=== PATIENT | male | born 2000 | race Caucasian/White ===

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

== ENCOUNTER 2022-02-10 16:33 | Emergency (ER) | payer MEDICAID, SELFPAY ==
[2022-02-10 16:35] VITALS: BP 137/79; PULSE 93; RESP 14; TEMP 36.2; O2SAT 98; BMI 20.4
--- NOTE | 2022-02-10 20:31 | EDS_ITS ---
HPI History of Present Illness Chief Complaint: Eye Problem Narrative Narrative: 22-year-old male presenting with left eye drainage. He states he does not know when this started. He denies any trauma. He is a noncontact wearer. He states that he is not had a fever or visual complaints. He does state that is hard to keep his eye open at times. He is noted weeping and crusting over the left eye. [facility] Medical History Hidradenitis suppurativa Home Medications cephalexin 500 mg capsule 500 mg PO Q6 #40 CAPSULES 07/07/21 [Rx Last Taken Unknown] sulfamethoxazole 800 mg-trimethoprim 160 mg tablet 1 tab PO BID #20 TABLETS 07/07/21 [Rx Last Taken Unknown] tramadol 50 mg tablet 50 mg PO Q4H PRN PRN Pain 07/07/21 [History Last Taken Unknown] polymyxin B sulfate 10,000 unit-trimethoprim 1 mg/mL eye drops (Polytrim) 1 drp LEFT EYE Q3H 7 days #10 mL 02/10/22 [Rx Last Taken Unknown] Allergy/AdvReac Type Severity Reaction Status Date / Time amoxicillin Allergy Other Verified 02/10/22 16:35 codeine Allergy Other Verified 02/10/22 16:35 Penicillins Allergy Other Verified 02/10/22 16:35 Social History Smoking Status: Never smoker ROS ROS ED Constitutional Constitutional ED: Denies chills, fever(s) or sweats Eyes Eyes: Reports other Details: Left eye discharge, drainage, matted eyelid ; Denies blurry vision or change in vision ENT ENT ED: Denies ear pain or sore throat Cardiovascular Cardiovascular: Denies chest pain, palpitations or racing heartbeat Respiratory/Chest Respiratory/Chest: Denies cough, dyspnea or sputum Gastrointestinal Gastrointestinal: Denies abdominal pain, constipation, diarrhea, nausea or vomiting Genitourinary Genitourinary ED: Denies dysuria, hematuria or urinary frequency Musculoskeletal Musculoskeletal: Denies arthralgias, myalgias or neck pain Integumentary Denies abscess, Abrasions or rash Neurologic Neurologic: Denies headache(s), paresthesias or weakness Psychiatric Psychiatric: Denies anxiety, depression, suicidal ideation or suicidal thoughts Endocrine Endocrinology: Denies polydipsia or polyuria EXAM Physical Exam Const Vital Signs: 02/10/22 16:35 Temperature 97.2 F L Temperature Source Temporal Pulse Rate 93 Respiratory Rate 14 Blood Pressure 137/79 H Blood Pressure Mean 98 Pulse Ox 98 Oxygen Delivery Method Room Air Positive well nourished General Appearance ED: ANJELICA SIMPSON Reports normocephalic atraumatic Eyes PERRL and EOMs intact bilaterally Alignment: alignment normal Sclera: sclera abnormal Positive for left Details: scleral injection Pupil: PERRL Slit Lamp: lids/lashes/lacrimal system lid swelling/edema (Crusting and drainage noted to the left eye.) Resp normal respiratory effort GI non-tender Neuro oriented x3 Sensorium / Orientation: alert MDM MDM MDM Narrative Medical decision making narrative: Patient with left eye irritation, drainage, matted eyelids, increased left eye pain. Exam is consistent with conjunctivitis. This has been ongoing for at least a week after speaking with the patient. He states he has not had any medication yet. He denies any eye trauma. He is a noncontact wearer. Patient started on Polytrim with the first dose given in the ER. He is given follow-up with ophthalmology to ensure resolution. Impression: 1. Conjunctivitis Lab Data Attestation: I reviewed the patient's lab results. Discharge Plan Triage Chief Complaint: Eye Problem ED Provider: Sherman Nazario Dx/Rx/DC Orders Instructions: ED Conjunctivitis, Bacterial Prescriptions: New polymyxin B sulf-trimethoprim [Polytrim] 10,000 unit- 1 mg/mL drops 1 drp LEFT EYE Q3H 7 Days Qty: 10 0RF Rx Instructions: while awake; do not exceed 6 doses in 24 hours No Action tramadol 50 mg tablet 50 mg PO Q4H PRN PRN (Reason: Pain) Label Comments: TAKE 1 TABLET BY MOUTH EVERY 4 HOURS NEEDED FOR PAIN FOR UP TO 3 DAYS sulfamethoxazole-trimethoprim [sulfamethoxazole-trimethoprim] 1 TABLET tablet 1 tab PO BID Qty: 20 0RF cephalexin [cephalexin] 500 MG capsule 500 mg PO Q6 Qty: 40 0RF Primary Care Provider: Care Physician,No Primary Referrals: Flaquito Maki MD [Med Staff - Active Staff] - 3-5 Days Care Physician,No Primary [Primary Care Provider] - Disposition Disposition: Home, Self Care
[2022-02-10] MEDS: Neomycin/Bacitracin/Polymyxin Opth. Ointment 1 APPLIC LEFT EYE (20:38)
== END 2022-02-10 20:41 | disposition home or self-care (01) ==
PROVIDERS: Emergency Provider Student in an Organized Health Care Education/Training Program; Visit Provider Student in an Organized Health Care Education/Training Program
DX: H10.9 Unspecified conjunctivitis (principal)
CPT/HCPCS: 99282